=== PATIENT | male | born 1940 | race Caucasian/White ===

== ENCOUNTER → 2017-07-31 | Outpatient (CLI) | payer MEDICARE, BC ==
[2015-11-30 13:05] VITALS: BP 114/73
[~2017-07-31] MED LIST: ALBU4TAB3 PO; CYCL5TAB PO; DICL100G18 TP; GABA-585 PO; GABA600T2 PO; GLUC100018 PO; HYDR15SO PO; IOHEXOL 240 MG/ML 50ML VIAL. ONE; IOHEXOL 240 MG/ML 50ML VIAL. PO ONE; IOHEXOL 300 MG/ML 75 ML VIAL. IV ONE; IRON50VI2 IV; LEVO25TA4 PO
--- NOTE | 2017-07-31 15:13 | RAD ---
CT of the abdomen and pelvis with contrast 07/31/2017 Indication: Diffuse abdominal pain Comparison study: CT of the abdomen and pelvis with contrast November 10, 2015 Technique: Multidetector CT imaging of the abdomen and pelvis is obtained following the administration of IV and enteric contrast. Findings: The partially visualized lung bases demonstrate patchy linear opacities in the lingula and middle lobe. Findings suggest scarring or atelectasis and are similar to comparison study.. There is however a new 7 mm nodular opacity in the right lower lobe (axial image #7) not seen on prior study. CT surveillance recommended. The liver is grossly unremarkable in appearance. No intrahepatic biliary dilatation is identified. The portal vein is patent. Cholelithiasis is noted. Gas consisting stone is noted in the region of the gallbladder neck. The adrenal glands are normal in appearance. The spleen is unremarkable in appearance. The pancreas is atrophic in appearance but otherwise grossly unremarkable. The kidneys demonstrate no acute abnormality. The bladder is grossly unremarkable. There are postsurgical changes consistent with gastric bypass surgery. No evidence of bowel obstruction is seen. No definitive evidence of acute inflammatory change involving the bowel is identified. The sigmoid colon is essentially completely decompressed limiting evaluation of this structure. Mild sigmoid diverticulosis is noted without evidence of acute diverticulitis. No free fluid or free air seen in the abdomen or pelvis. No evidence of acute osseous abnormality is identified. Impression: 1. No evidence of acute intra-abdominal abnormality is identified 2. Cholelithiasis. A stone in the region of the gallbladder neck. If there is continued concern for gallbladder pathology a ultrasound may be helpful for further evaluation. Gastric bypass surgery is noted. 2. New 7 mm nodule, right lower lobe. CT surveillance recommended. (CT at 6?12 months, then consider CT at 18?24 month )
== END | disposition home or self-care (01) ==
LOC: CT 11:55
PROVIDERS: ATTEND Physician Assistant Medical
DX: K80.20 Calculus of gallbladder without cholecystitis without obstruction (principal); K57.30 Diverticulosis of large intestine without perforation or abscess without bleeding; K86.89 Other specified diseases of pancreas; R91.1 Solitary pulmonary nodule; Z98.84 Bariatric surgery status
CPT/HCPCS: 74177; Q9966; Q9967

== ENCOUNTER → 2017-08-20 | Outpatient (CLI) | payer MEDICARE, BC ==
[2015-11-30 13:05] VITALS: BP 114/73
[~2017-08-20] MED LIST changes: -IOHEXOL 240 MG/ML 50ML VIAL. ONE; -IOHEXOL 240 MG/ML 50ML VIAL. PO ONE; -IOHEXOL 300 MG/ML 75 ML VIAL. IV ONE
--- NOTE | 2017-08-20 12:57 | RAD ---
CT of the chest without contrast, 08/20/2017: History: Chest and upper abdominal pain Noncontrast scans were obtained as requested. There is mild calcific plaquing of the thoracic aorta without evidence of aneurysm. Several coronary artery calcifications are noted. The heart is within normal limits in size. Small mediastinal lymph nodes are seen without evidence of pathologic enlargement. There are moderate streaky and groundglass opacities in both lungs, predominantly in both upper lobes and in the right middle lobe. These are most prominent in the apices. Scarring is suspected. Active inflammation cannot be excluded. A calcified granuloma is present in the right middle lobe. There are mild, predominantly tree-in-bud type opacities in the right lung base. These findings appear unchanged since 07/31/2017 and are compatible with scarring or chronic inflammation. No pleural fluid is evident. There are radiopacities in the partially visualized gallbladder compatible with gallstones. No pericholecystic edema is seen. Postsurgical changes involving the stomach are again noted. IMPRESSION: 1. Moderate bilateral streaky and groundglass opacities in both lungs suggesting scarring, although a component of chronic inflammation cannot be excluded. 2. Stable mild tree-in-bud type opacities in the right lung base. 3. Calcific plaquing of the aorta and coronary arteries. 4. Cholelithiasis PQRS Compliance Statement: One or more of the following individualized dose reduction techniques were utilized for this examination: 1. Automated exposure control 2. Adjustment of the mA and/or kV according to patient size 3. Use of iterative reconstruction technique
== END | disposition home or self-care (01) ==
LOC: CT 12:14
PROVIDERS: ATTEND Physician Assistant Medical
DX: K80.20 Calculus of gallbladder without cholecystitis without obstruction (principal); I25.10 Atherosclerotic heart disease of native coronary artery without angina pectoris; Z98.890 Other specified postprocedural states
CPT/HCPCS: 71250

== ENCOUNTER → 2018-01-11 | Outpatient (CLI) | payer MEDICARE, BC ==
[2015-11-30 13:05] VITALS: BP 114/73
--- NOTE | 2018-01-11 15:05 | RAD ---
Three view lumbosacral spine History: Low back pain AP, coned-down lateral and lateral views of the lumbosacral spine were obtained. The vertebral bodies are aligned. There is no loss of vertebral body stature. There is loss of intervertebral disc height and marginal spurring examination endplates. There is sclerotic changes of the facets. Is mild degenerative levoconvex scoliosis. Impression: Degenerative changes. No acute findings. End Impression
== END | disposition home or self-care (01) ==
LOC: PMG 10:43
PROVIDERS: ATTEND Physician Assistant Medical
DX: M47.896 Other spondylosis, lumbar region (principal); K21.9 Gastro-esophageal reflux disease without esophagitis
CPT/HCPCS: 72100

== ENCOUNTER → 2019-06-09 | Outpatient (CLI) | payer MEDICARE, BC ==
[2015-11-30 13:05] VITALS: BP 114/73
[~2019-06-09] MED LIST changes: -GABA600T2 PO; +GABA600T7 PO
--- NOTE | 2019-06-09 16:39 | RAD ---
EXAM: CT Chest without IV contrast CLINICAL HISTORY: COPD, PULMONARY OPACITIES COMPARISON: None. TECHNIQUE: CT of the chest without intravenous contrast. Axial, coronal and sagittal reformatted images were generated. ---PQRS compliance statement - One or more of the following individualized dose reduction techniques were utilized for this study: 1. Automated exposure control 2. Adjustment of the mA and/or kV according to patient size 3. Use of iterative reconstruction technique--- FINDINGS: Lack of intravenous contrast limits evaluation of solid organs, vasculature, and lymph nodes. Chest: Heart is not enlarged. Coronary calcifications are seen. Ascending aorta measures 3.8 cm at the level of the right pulmonary artery. No pleural effusion. No pneumothorax. Within the constraints of noncontrast examination. There is no mediastinal or hilar lymphadenopathy. No axillary lymphadenopathy. Central airways appear grossly patent however intermittent opacification is seen within distal small bowel areas, possibly mucous plugging. Multiple bilateral lung nodules are seen. For instance subpleural right lower lobe posterior lung nodules are noted. A 6 mm left lower lobe lung nodule is seen. Of note these lung nodules or more evident on today's exam given the thinner slices from the reconstructions. Bilateral upper lobe groundglass and linear airspace opacities are seen. When compared to prior examination 05/30/2018, these are grossly stable. Visualized Upper abdomen: Gallstones are seen within the gallbladder. Bones: Osseous structures are grossly stable. IMPRESSION: Bilateral upper lobe groundglass airspace opacities are grossly stable. Bilateral lung nodules are seen, the majority of which are stable to prior examination, however some appear marginally larger. Although this may be related to slice thickness, follow-up CT in 12 months is recommended to establish stability. Electronically signed by: Javier Tom MD (06/09/2019 4:36 PM) [facility]
== END | disposition home or self-care (01) ==
LOC: CT 14:12
PROVIDERS: ATTEND Internal Medicine Pulmonary Disease
DX: K80.20 Calculus of gallbladder without cholecystitis without obstruction (principal); R91.8 Other nonspecific abnormal finding of lung field; J44.9 Chronic obstructive pulmonary disease, unspecified; I25.10 Atherosclerotic heart disease of native coronary artery without angina pectoris
CPT/HCPCS: 71250

== ENCOUNTER → 2020-07-07 | Outpatient (CLI) | payer MEDICARE, BC ==
[~2020-07-07] MED LIST changes: +BUPIVACAINE MPF 0.25% 10 ML VIAL. ONE; +LIDOCAINE 1% PF 30 ML VIAL. ONE
[2020-07-07 15:25] VITALS: BP 112/75
== END | disposition home or self-care (01) ==
LOC: SURG 14:08
PROVIDERS: ATTEND Anesthesiology
DX: M47.816 Spondylosis without myelopathy or radiculopathy, lumbar region (principal); R25.1 Tremor, unspecified; I10 Essential (primary) hypertension; G47.00 Insomnia, unspecified; F41.9 Anxiety disorder, unspecified; Z86.73 Personal history of transient ischemic attack (TIA), and cerebral infarction without residual deficits; Z98.890 Other specified postprocedural states; Z79.899 Other long term (current) drug therapy; Z90.49 Acquired absence of other specified parts of digestive tract
CPT/HCPCS: 64493; 64494; J2001; J3490

== ENCOUNTER 2021-03-19 14:52 | Inpatient (IN) | payer MEDICARE, BC ==
[~2021-03-19] VITALS: Ht 177.8 cm; Wt 61.0 kg
[~2021-03-19 14:52] MED LIST changes: -BUPIVACAINE MPF 0.25% 10 ML VIAL. ONE; -LIDOCAINE 1% PF 30 ML VIAL. ONE
[2021-03-19] MEDS ORDERED: IV NORMAL SALINE 1,000ML 1,000 ML IV ONE (15:15)
--- NOTE | 2021-03-19 15:26 | PHYS DOC ---
Adult General Chief Complaint Chief Complaint: NAUSEA/VOMITING/DIARRHEA HPI HPI Patient is a [80-year-old male presenting via EMS for fatigue. Reports this is a chronic issue, states he has had chronic unintentional weight loss, fatigue and motivation issues for over a year. These have been well documented and followed up in outpatient setting; however, he has not seen his primary care physician in at least 3 months. No recent major changes in health, no recent sick contacts or travel. Reports he woke up this evening and had generalized nausea with x2 episodes of emesis that were nonbloody and nonbilious in nature. He continued to feel weak throughout the rest of the day and felt unsteady on his feet which he reports is baseline for him and so, he contacted EMS to bring him to our ER for evaluation. On arrival, patient denies any pain or ongoing nausea. Admits ongoing fatigue, weakness and feelings of being unsteady on his feet, he states he lives at home and performs all activities of daily living by himself but reports he is afraid to go home in his current condition Review of Systems Review of Systems Fourteen body systems of review of systems have been reviewed. See HPI for pertinent positives and negative responses, other alba all other systems are negative, non-pertinent or non-contributory Allergies Allergies Allergies Coded Allergies Type Severity Reaction Last Updated Verified No Known Drug Allergies 11/10/15 No Physical Exam Physical Exam Constitutional: Well developed, well nourished, no acute distress, non-toxic appearance. HENT: Normocephalic, atraumatic, bilateral external ears normal, oropharynx moist, no oral exudates, nose normal. Eyes: PERRLA, EOMI, conjunctiva normal, no discharge. Neck: Normal range of motion, no tenderness, supple, no stridor. Cardiovascular: Heart rate regular, sinus rhythm, no murmurs rubs or gallops Lungs & Thorax: Bilateral breath sounds clear to auscultation Abdomen: Bowel sounds normal, soft, no tenderness, no masses, no pulsatile masses. Nonsurgical abdomen, no peritoneal signs Skin: Warm, dry, no erythema, no rash. Back: No tenderness, no CVA tenderness. Extremities: No tenderness, no cyanosis, no clubbing, ROM intact, no edema. Neurologic: Alert and oriented X 3, cranial nerves II through XII intact, normal motor & sensory function, no focal deficits noted. Psychologic: Affect normal, memory impairment, mood normal. Current Patient Data Vital Signs Vital Signs Date Time Temp Pulse Resp B/P (MAP) Pulse Ox O2 Delivery O2 Flow Rate FiO2 03/19/21 14:55 97.9 90 20 141/89 (106) 98 Room Air Vital Signs Date Time Temp Pulse Resp B/P (MAP) Pulse Ox O2 Delivery O2 Flow Rate FiO2 03/19/21 14:55 97.9 90 20 141/89 (106) 98 Room Air Lab Results Laboratory Tests Test 03/19/21 15:05 White Blood Count 10.7 x10^3/uL Red Blood Count 4.40 x10^6/uL Hemoglobin 9.9 g/dL Hematocrit 31.7 % Mean Corpuscular Volume 72 fL Mean Corpuscular Hemoglobin 22 pg Mean Corpuscular Hemoglobin Concent 31 g/dL Red Cell Distribution Width 17.9 % Platelet Count 447 x10^3/uL Neutrophils (%) (Auto) 85 % Lymphocytes (%) (Auto) 4 % Monocytes (%) (Auto) 8 % Eosinophils (%) (Auto) 1 % Basophils (%) (Auto) 1 % Neutrophils # (Auto) 9.1 x10^3uL Lymphocytes # (Auto) 0.5 x10^3/uL Monocytes # (Auto) 0.9 x10^3/uL Eosinophils # (Auto) 0.1 x10^3/uL Basophils # (Auto) 0.1 x10^3/uL Platelet Estimate Increased Hypochromasia Mod Anisocytosis Slight Microcytosis Slight Ovalocytes Few Sodium Level 139 mmol/L Potassium Level 4.3 mmol/L Chloride Level 106 mmol/L Carbon Dioxide Level 25 mmol/L Anion Gap 8 Blood Urea Nitrogen 14 mg/dL Creatinine 0.9 mg/dL Estimated GFR (Cockcroft-Gault) 81.2 BUN/Creatinine Ratio 16 Glucose Level 132 mg/dL Calcium Level 8.4 mg/dL Total Bilirubin 0.4 mg/dL Aspartate Amino Transf (AST/SGOT) 22 U/L Alanine Aminotransferase (ALT/SGPT) 9 U/L Alkaline Phosphatase 121 U/L Troponin I Quantitative < 0.017 ng/mL Total Protein 6.5 g/dL Albumin 3.0 g/dL Albumin/Globulin Ratio 0.9 Current Medications Medications (Trade) Dose Ordered Sig/Yessenia Route PRN Reason Start Time Stop Time Status Last Admin Dose Admin Sodium Chloride 1,000 ml @ 1,000 mls/hr 1X ONCE IV 03/19/21 15:15 03/19/21 16:15 DC 03/19/21 15:32 Sodium Chloride 1,000 ml @ 75 mls/hr [id number] IV 03/19/21 17:30 03/20/21 17:29 03/19/21 21:00 Acetaminophen (Tylenol) 650 mg PRN Q4HRS PRN PO FEVER > 100.3'F 03/19/21 17:30 03/20/21 17:29 EKG EKG EKG ordered and interpreted by myself at 1540 hrs. as sinus rhythm at 88 bpm, unremarkable intervals, no axis deviation, no obvious ischemic findings, no STEMI Radiology/Procedures Radiology/Procedures EXAM: Chest, single view. HISTORY: Nausea and vomiting. COMPARISON: 06/09/2019 FINDINGS: A frontal view of the chest is obtained. There is no infiltrate, pl eural fusion or pneumothorax. The heart is normal in size. IMPRESSION: No acute pulmonary finding. Electronically signed by: Maribell Shelby MD (03/19/2021 3:56 PM) [id number] Heart Score C/O Chest Pain: No HEART Score for Chest Pain: HEART Score for Chest Pain Response (Comments) Value History Slighlty/Non-Suspicious 0 ECG Normal 0 Age > 65 2 Risk Factors >3 Risk Factors or Hx CAD 2 Troponin < Normal Limit 0 Total 4 Risk Factors: Risk Factors: DM, Current or recent (<one month) smoker, HTN, HLP, family history of CAD, obesity. Risk Scores: Risk Factors: DM, Current or recent (<one month) smoker, HTN, HLP, family histo ry of CAD, obesity. Course & Med Decision Making Course & Med Decision Making ABCs unremarkable. HPI limited as I suspect likely undiagnosed dementia as primary factor. Physical exam and comprehensive ER work-up nonconcerning for any emergent or surgical issues I updated patient on ER work-up and we discussed discharge home which she was initially agreeable to; however, patient cites his x2 sons are not in town and he does not feel safe going home. Patient unable to safely ambulate and care for self at home. Does not have regular care at home to assist through personal deficits. Unsafe to disposition home; at minimum plan admission for home safety evaluation, social and physical therapy evaluations, possible placement I contacted on-call hospitalist and reviewed case and need for admission and he was amenable. I updated patient on proposed plan of care that included hospital admission and he was amenable to plan as stated. All questions and concerns addressed prior to admission Critical Care Time This patient required critical care. Due to the fact that the patient required a significant amount of one on one physician - patient contact time, ordering and review of studies, arranging urgent treatment with development of a management plan, evaluation of patients response to treatment with frequent reassessments, and discussions with other providers this patient required 40 minutes of critical care time. Critical care time was indicated due to the inherent instability and/or potential for instability in this patient. The critical care time that is allocated to this patient is above and beyond any time spent on any other billable procedures performed on this patient. Dragon Disclaimer Dragon Disclaimer This electronic medical record was generated, in whole or in part, using a voice recognition dictation system. Departure Departure: Impression: Primary Impression: Dehydration Additional Impression: Nausea and vomiting Disposition: ADMITTED INPATIENT Admitting Physician: Ignacio Alegria Condition: IMPROVED Referrals: MADELINE SANTIZO (PCP) Additional Instructions: You were seen for nausea and vomiting. It is unknown what is causing your symptoms but you most likely have a self-limiting illness such as gastroenteritis which should resolve in the next few days to a week. As disclosed, there is no emergent findings based on your vital signs, physical exam and comprehensive ER work-up. I offered and recommended admission given your history of symptoms but you declined. As such, you need to contact your primary care physician first thing on Sunday to review ER visit today and need for continued outpatient work-up for your chronic symptoms. You should return to the ED if you develop abdominal pain, fever > 100.3, black/bloody stools, black/bloody vomiting, cannot keep water down, or any other new or concerning symptoms. Problem Qualifiers CHIRAG JUDGE DO Mar 19, 2021 15:26
[2021-03-19 15:32] LABS: BASO # 0.1 x10^3/uL (0.0-0.2); BASO % 1 % (0-3); EOS # 0.1 x10^3/uL (0.0-0.7); EOS % 1 % (0-3); HEMATOCRIT 31.7 % (39.0-53.0); HEMOGLOBIN 9.9 g/dL (13.0-17.5); LYMPH # 0.5 x10^3/uL (1.0-4.8); LYMPH % 4 % (24-48); MEAN CORPUSCULAR HEMOGLOBIN 22 pg (25-35); MEAN CORPUSCULAR HGB CONC 31 g/dL (31-37); MEAN CORPUSCULAR VOLUME 72 fL (79-100); MONO # 0.9 x10^3/uL (0.0-1.1); MONO % 8 % (0-9); NEUT # 9.1 x10^3uL (1.8-7.7); NEUT % 85 % (31-73); PLATELET COUNT 447 x10^3/uL (140-400); RED CELL DISTRIBUTION WIDTH 17.9 % (11.5-14.5); WHITE BLOOD COUNT 10.7 x10^3/uL (4.0-11.0)
--- NOTE | 2021-03-19 15:40 | EKG ---
[address] [address] Test Date: 2021-03-19 Test Time: 15:34:04 Pat Name: SHASHI CARTER Department: Room: Gender: M Wood [employer] Apprentice: MICHELLE : 1940 Requested By: CHIRAG JUDGE Order Number: [id number] Reading MD: Measurements Intervals [place] Rate: 88 P: -34 IN: 176 QRS: 31 QRSD: 96 T: 47 QT: 356 QTc: 434 Interpretive Statements SUPRAVENTRICULAR RHYTHM OTHERWISE NORMAL ECG RI6.02 No previous ECG available for comparison
[2021-03-19 15:53] LABS: ALBUMIN/GLOBULIN RATIO 0.9 (1.0-1.7); CALCIUM 8.4 mg/dL (8.5-10.1); CREATININE 0.9 mg/dL (0.7-1.3); GFR 81.2; POTASSIUM 4.3 mmol/L (3.5-5.1); TOTAL BILIRUBIN 0.4 mg/dL (0.2-1.0); TOTAL PROTEIN 6.5 g/dL (6.4-8.2)
--- NOTE | 2021-03-19 15:59 | RAD ---
EXAM: Chest, single view. HISTORY: Nausea and vomiting. COMPARISON: 06/09/2019 FINDINGS: A frontal view of the chest is obtained. There is no infiltrate, pleural fusion or pneumoth orax. The heart is normal in size. IMPRESSION: No acute pulmonary finding. Electronically signed by: Maribell Shelby MD (03/19/2021 3:56 PM) [id number]
[2021-03-19] MEDS ORDERED: IV NORMAL SALINE 1,000ML 1,000 ML IV SCH (17:30)
[2021-03-19] MEDS ORDERED: ACETAMINOPHEN 325 MG TABLET PO PRN (17:30)
[2021-03-19 18:51] VITALS: BP 144/89
[2021-03-19 21:22] LABS: ANISOCYTOSIS SLIGHT; HYPOCHROMIA MOD; MICROCYTOSIS SLIGHT; OVALOCYTES FEW; PLT ESTIMATE INCREASED (ADEQUATE)
[2021-03-19 22:36] VITALS: BP 129/75
[2021-03-20 06:04] VITALS: BP 156/91
--- NOTE | 2021-03-20 08:07 | HP ---
ATTENDING PHYSICIAN: Dr. Alegria. HISTORY OF PRESENT ILLNESS: I was asked to admit this patient, I got a call from the ED. He is 80 years old, brought in by his son with general weakness. There is some underlying confusion. The patient was admitted to my service. I came in the next morning at 0745 hours to see him, he was ambulating, insisted on leaving against medical advice. He has a ride. He signed the papers. The patient left AMA before I had a chance to examine him. NAOMY DR: Alexia TID: [id number] CC: IRMA CARRERO
== END 2021-03-20 07:45 | disposition left against medical advice (07) | DRG 641 ==
LOC: ER 14:52 → 1 SOUTH 17:21 → ER 17:55
PROVIDERS: ADMIT Hospitalist; ATTEND Hospitalist
DX: E86.0 Dehydration (principal); Z68.1 Body mass index [BMI] 19.9 or less, adult; R63.4 Abnormal weight loss; Z53.29 Procedure and treatment not carried out because of patient's decision for other reasons
CPT/HCPCS: 36415; 71045; 80053; 84484; 85025; 93005; 96360; 99285-25; J7030

== ENCOUNTER → 2021-03-30 | Outpatient (CLI) | payer MEDICARE, BC ==
[2021-03-20 06:04] VITALS: BP 156/91
--- NOTE | 2021-03-30 11:58 | RAD ---
CT Head without contrast 03/30/2021 11:06 AM Indication: : MEMORY CHANGES. DIZZINESS. Comparison: None Findings: No intracranial hemorrhage is seen. No evidence of acute territorial infarct is seen. Note that CT is limited in sensitivity for acute ischemia. Age-related atrophic changes are noted. Ther e is patchy periventricular and deep white matter hypoattenuation which is nonspecific, but most comm only relates to chronic small vessel disease. No abnormal extra axial fluid collection is identified . No mass effect or midline shift is seen. No acute osseous abnormalities are seen. Impression: 1. No acute intracranial process identified 2. Age-related atrophy, and evidence of chronic small vessel disease as described CT DOSING PQRS STATEMENT: One or more of the following individualized dose reduction techniques were utilized for this examinat ion: 1. Automated exposure control 2. Adjustment of the mA and/or kV according to patient size 3. Use of iterative reconstruction technique Electronically signed by: Sarthak Trinidad MD (03/30/2021 11:55 AM) [id number]
== END ==
LOC: CT 10:50
PROVIDERS: ATTEND Physician Assistant Medical
DX: I73.9 Peripheral vascular disease, unspecified (principal); G31.9 Degenerative disease of nervous system, unspecified; R41.3 Other amnesia
CPT/HCPCS: 70450